=== PATIENT | female | born 1950 | race Caucasian/White ===

== ENCOUNTER 2020-04-06 09:21 | Emergency (ER) | payer MEDICARE, OTHER ==
[~2020-04-06] VITALS: Ht 172.7 cm; Wt 70.0 kg
[2020-04-06 09:55] LABS: BASO % 1 % (0-3); EOS % 1 % (0-3); HEMATOCRIT 40.3 % (36.0-47.0); HEMOGLOBIN 13.3 g/dL (12.0-15.5); LYMPH # 1.1 x10^3/uL (1.0-4.8); LYMPH % 15 % (24-48); MEAN CORPUSCULAR HEMOGLOBIN 30 pg (25-35); MEAN CORPUSCULAR HGB CONC 33 g/dL (31-37); MEAN CORPUSCULAR VOLUME 91 fL (79-100); MONO # 0.7 x10^3/uL (0.0-1.1); MONO % 10 % (0-9); NEUT # 5.4 x10^3uL (1.8-7.7); NEUT % 74 % (31-73); PLATELET COUNT 235 x10^3/uL (140-400); RED BLOOD COUNT 4.42 x10^6/uL (3.50-5.40); RED CELL DISTRIBUTION WIDTH 13.4 % (11.5-14.5); WHITE BLOOD COUNT 7.3 x10^3/uL (4.0-11.0)
[2020-04-06 10:00] LABS: CALCIUM 9.5 mg/dL (8.5-10.1); GFR 55.3; POTASSIUM 3.7 mmol/L (3.5-5.1)
[2020-04-06] MEDS ORDERED: ONDANSETRON PF 4 MG/2 ML VIAL. IVP ONE ×2 (10:00→13:15)
[2020-04-06] MEDS ORDERED: MORPHINE SULFATE 4 MG/ML DISP.SYRIN. IV ONE ×2 (10:00→14:15)
--- NOTE | 2020-04-06 10:00 | PHYS DOC ---
Past History Past Medical History: Cancer, Depression, Hypertension, Hypothyroid Past Surgical History: Tubal ligation Alcohol Use: None General Adult EDM: Chief Complaint: ABDOMINAL PAIN HPI: HPI: Patient is a 69-year-old female who presented to ER today for evaluation of abdominal pain started this morning, associate with some nausea. Patient said t he pain radiates across her belly and into her back area. Patient denies any chest pain, no cough, no fever, no trouble breathing. Patient denies any diarrhea Review of Systems: Review of Systems: Constitutional: Denies fever or chills Eyes: Denies change in visual acuity HENT: Denies nasal congestion or sore throat Respiratory: Denies cough or shortness of breath Cardiovascular: Denies chest pain or edema GI: Positive for abdominal pain and nausea, no diarrhea. : Denies dysuria Musculoskeletal: Denies back pain or joint pain Integument: Denies rash Neurologic: Denies headache, focal weakness or sensory changes Endocrine: Denies polyuria or polydipsia Lymphatic: Denies swollen glands Psychiatric: Denies depression or anxiety Heart Score: Risk Factors: Risk Factors: DM, Current or recent (<one month) smoker, HTN, HLP, family history of CAD, obesity. Risk Scores: Score 0 - 3: 2.5% MACE over next 6 weeks - Discharge Home Score 4 - 6: 20.3% MACE over next 6 weeks - Admit for Clinical Observation Score 7 - 10: 72.7% MACE over next 6 weeks - Early Invasive Strategies Current Medications: Current Meds: Current Medications Medications (Trade) Dose Ordered Sig/Abdirahman Start Time Stop Time Status Last Admin Dose Admin Morphine Sulfate (Morphine 4mg Syringe) 4 mg 1X ONCE 04/06/20 10:00 04/06/20 10:01 UNV Ondansetron HCl (Zofran) 4 mg 1X ONCE 04/06/20 10:00 04/06/20 10:01 UNV Allergies: Allergies: Allergies Coded Allergies Type Severity Reaction Last Updated Verified amoxicillin Allergy Unknown 04/06/20 Yes clavulanic acid Allergy Unknown 04/06/20 Yes meperidine Allergy Unknown 04/06/20 Yes Physical Exam: PE: Constitutional: Well developed, well nourished, no acute distress, non-toxic appearance. [] HENT: Normocephalic, atraumatic, bilateral external ears normal, oropharynx moist, no oral exudates, nose normal. [] Eyes: PERRLA, EOMI, conjunctiva normal, no discharge. [] Neck: Normal range of motion, no tenderness, supple, no stridor. [] Cardiovascular:Heart rate regular rhythm, no murmur [] Lungs & Thorax: Bilateral breath sounds clear to auscultation [] Abdomen: Bowel sounds normal, soft, THERE IS tenderness IN PERIUMBILICAL AREA, no masses, no pulsatile masses. [] Skin: Warm, dry, no erythema, no rash. [] Back: No tenderness, no CVA tenderness. [] Extremities: No tenderness, no cyanosis, no clubbing, ROM intact, no edema. [] Neurologic: Alert and oriented X 3, normal motor function, normal sensory function, no focal deficits noted. [] Psychologic: Affect normal, judgement normal, mood normal. [] Current Patient Data: Labs: Current Medications Medications (Trade) Dose Ordered Sig/Abdirahman Route PRN Reason Start Time Stop Time Status Last Admin Dose Admin Ondansetron HCl (Zofran) 4 mg 1X ONCE IVP 04/06/20 10:00 04/06/20 10:01 UNV Morphine Sulfate (Morphine 4mg Syringe) 4 mg 1X ONCE IV 04/06/20 10:00 04/06/20 10:01 UNV Vital Signs: Vital Signs Date Time Temp Pulse Resp B/P (MAP) Pulse Ox O2 Delivery O2 Flow Rate FiO2 04/06/20 09:36 98.4 88 18 159/80 (106) 97 Room Air EKG: EKG: [] Radiology/Procedures: Radiology/Procedures: [][address] [address] IMAGING REPORT Signed PATIENT: VERÓNICA JAUREGUI ACCOUNT: [id number] : 1950 LOCATION: ER AGE: 69 SEX: F EXAM STATUS: REG ER ORD. PHYSICIAN: JAIRON DYKES DO REASON: ABDOMINAL PAIN PROCEDURE: CT ABD PELV W/ IV CONTRST ONLY Examination: CT ABD PELV W/ IV CONTRST ONLY History: ABDOMINAL PAIN Comparison/Correlation: 11/22/2011 CT abdomen and pelvis with contrast Findings: Axial images of the abdomen and pelvis were obtained following IV contrast. Sagittal and coronal reformatted images were provided. Right posterior basilar subpleural nodule is stable measuring less than 0.5 cm diameter a much smaller nodule is new compared to the previous exam. Liver, spleen, pancreas, adrenal glands, and right kidney are normal. Gallbladder fossa is unremarkable. Left renal lower pole cyst is present with septations at the superior aspect. These relatively thin septations are dense and probably calcified. No hydronephrosis. Moderately distended small bowel loops within the right abdomen and pelvis are fluid-filled. Transition point is noted involving small bowel on axial image 50 of series 2 within the right upper pelvic region. There is no mass or inflammatory process identified at this transition point. Distal decompressed small bowel loops are evident. The amount of pelvic free fluid is present and presumed reactive. Moderate amount of stool in the colon is present. No inflammatory findings about the cecum. Pelvic free fluid is probably reactive. The bladder is unremarkable. Uterus is unremarkable. Bony structures are unremarkable. Impression: Small bowel obstruction with transition in the right mid pelvic region. Reactive pelvic free fluid. PQRS Compliance Statement: One or more of the following individualized dose reduction techniques were utilized for this examination: 1. Automated exposure control 2. Adjustment of the mA and/or kV according to patient size 3. Use of iterative reconstruction technique Electronically signed by: Terrence Roper MD (04/06/2020 11:47 AM) [id number] DICTATED AND SIGNED BY: TERRENCE ROPER MD DATE: 04/06/20 1147 CC: JAIRON DYKES DO; KIRK REEVES ~ Course & Med Decision Making: Course & Med Decision Making Pertinent Labs and Imaging studies reviewed. (See chart for details) Patient is a 69-year-old female who was found to have small bowel obstruction. Patient will need to be transferred to another hospital with surgical and GI specialist available. Patient request to be transferred to [facility]. Discussed with Dr. Ny who agreed to accept the patient for transfer over there. Ashwini Disclaimer: Ashwini Disclaimer: This electronic medical record was generated, in whole or in part, using a voice recognition dictation system. Departure Departure: Impression: Primary Impression: Small bowel obstruction Disposition: 02 XFER SHT-TRM HOSP (transferred to [facility], accepted by Dr. Ny) Condition: STABLE Referrals: KIRK REEVES (PCP) JAIRON DYKES DO Apr 06, 2020 10:00
[2020-04-06 10:06] LABS: ALBUMIN/GLOBULIN RATIO 1.1 (1.0-1.7); TOTAL BILIRUBIN 0.5 mg/dL (0.2-1.0); TOTAL PROTEIN 7.5 g/dL (6.4-8.2)
[2020-04-06] MEDS ORDERED: IOHEXOL 300 MG/ML 75 ML VIAL. IV ONE (10:45)
[2020-04-06] MEDS ORDERED: CONTRAST GIVEN. MC PRN (11:00)
[2020-04-06 11:30] LABS: BACTERIA,URINE MOD /HPF (0-FEW); BILIRUBIN,URINE NEG (NEG); CLARITY,URINE CLEAR; COLOR,URINE YELLOW; GLUCOSE,URINE NEG (NEG); NITRITE,URINE NEG (NEG); SQUAMOUS EPITHELIAL CELL,UR FEW /LPF; UROBILINOGEN,URINE 0.2 mg/dL (0.2 mg/dL); WBC,URINE 20-40 /HPF (0-4)
--- NOTE | 2020-04-06 11:50 | RAD ---
Examination: CT ABD PELV W/ IV CONTRST ONLY History: ABDOMINAL PAIN Comparison/Correlation: 11/22/2011 CT abdomen and pelvis with contrast Findings: Axial images of the abdomen and pelvis were obtained following IV contrast. Sagittal and coronal reformatted images were provided. Right posterior basilar subpleural nodule is stable measuring less than 0.5 cm diameter a much smaller nodule is new compared to the previous exam. Liver, spleen, pancreas, adrenal glands, and right kidney are normal. Gallbladder fossa is unremarkable. Left renal lower pole cyst is present with septations at the superior aspect. These relatively thin septations are dense and probably calcified. No hydronephrosis. Moderately distended small bowel loops within the right abdomen and pelvis are fluid-filled. Transition point is noted involving small bowel on axial image 50 of series 2 within the right upper pelvic region. There is no mass or inflammatory process identified at this transition point. Distal decompressed small bowel loops are evident. The amount of pelvic free fluid is present and presumed reactive. Moderate amount of stool in the colon is present. No inflammatory findings about the cecum. Pelvic free fluid is probably reactive. The bladder is unremarkable. Uterus is unremarkable. Bony structures are unremarkable. Impression: Small bowel obstruction with transition in the right mid pelvic region. Reactive pelvic free fluid. PQRS Compliance Statement: One or more of the following individualized dose reduction techniques were utilized for this examination: 1. Automated exposure control 2. Adjustment of the mA and/or kV according to patient size 3. Use of iterative reconstruction technique Electronically signed by: Terrence Rodriguez MD (04/06/2020 11:47 AM) [id number]
--- NOTE | 2020-04-06 13:24 | RAD ---
INDICATION: Reason: NGT PLACEMENT / Spl. Instructions: / History: COMPARISON: CT from earlier same day IMPRESSION: Abdomen: Single view obtained. Enteric tube is seen with the tip just distal to the gastroesophageal junction and the sidehole within the distal esophagus. Air-filled dilated loops of bowel are again seen within the abdomen. Again could be from obstruction. Electronically signed by: Brannon Howell MD (04/06/2020 1:21 PM) [id number]
--- NOTE | 2020-04-06 14:03 | EKG ---
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
[2020-04-06 14:17] VITALS: BP 162/76
== END 2020-04-06 14:43 | disposition short-term general hospital (02) ==
LOC: ER 09:21
DX: K56.609 Unspecified intestinal obstruction, unspecified as to partial versus complete obstruction (principal)
CPT/HCPCS: 36415; 74018; 74177; 80053; 81001; 83690; 83735; 84484; 85025; 85610; 85730; 87086; 93005; 96374; 96375; 96376; 99285; J2270; J2405; Q9967; 87077; 87186

== ENCOUNTER 2020-04-22 11:03 | Emergency (ER) | payer MEDICARE ==
[~2020-04-22] VITALS: Ht 172.7 cm; Wt 66.5 kg
--- NOTE | 2020-04-22 11:13 | PHYS DOC ---
Past History Past Medical History: Cancer, Depression, Hypertension, Hypothyroid Past Surgical History: Tubal ligation Alcohol Use: None General Adult EDM: Chief Complaint: NEAR SYCOPE HPI: HPI: Patient is a 69-year-old female who presents via EMS for near syncopal episode just prior to arrival. Patient states she had been feeling well and just showered and then started feeling clammy and lightheaded, went to have a small bowel movement and the symptoms persisted afterwards. Symptoms lasted but has total of 10 minutes. Patient states she has not had similar symptoms in the past denies any loss of consciousness or falls. Denies any chest pain, palpitations, shortness of breath. Patient is postop bowel resection for a bowel obstruction April 06 done at [place] by Dr. Neumann. Patient states the wound has been healing well she has been tolerating p.o. has a history of high blood pressure and has been having recent changes in her blood pressure medication, last medication change 2 weeks ago. Review of Systems: Review of Systems: Constitutional: Denies fever or chills, lightheadedness and diaphoresis Eyes: Denies change in visual acuity HENT: Denies nasal congestion or sore throat Respiratory: Denies cough or shortness of breath Cardiovascular: Denies chest pain or edema GI: Denies abdominal pain, nausea, vomiting, bloody stools or diarrhea : Denies dysuria Musculoskeletal: Denies back pain or joint pain Integument: Denies rash Neurologic: Denies headache, focal weakness or sensory changes Endocrine: Denies polyuria or polydipsia Lymphatic: Denies swollen glands Psychiatric: Denies depression or anxiety Heart Score: Risk Factors: Risk Factors: DM, Current or recent (<one month) smoker, HTN, HLP, family history of CAD, obesity. Risk Scores: Score 0 - 3: 2.5% MACE over next 6 weeks - Discharge Home Score 4 - 6: 20.3% MACE over next 6 weeks - Admit for Clinical Observation Score 7 - 10: 72.7% MACE over next 6 weeks - Early Invasive Strategies Allergies: Allergies: Allergies Coded Allergies Type Severity Reaction Last Updated Verified amoxicillin Allergy Unknown 04/06/20 Yes clavulanic acid Allergy Unknown 04/06/20 Yes meperidine Allergy Unknown 04/06/20 Yes Physical Exam: PE: Constitutional: Well developed, well nourished, no acute distress, non-toxic appearance. [] HENT: Normocephalic, atraumatic, bilateral external ears normal, oropharynx moist, no oral exudates, nose normal. [] Eyes: PERRLA, EOMI, conjunctiva normal, no discharge. [] Neck: Normal range of motion, no tenderness, supple, no stridor. [] Cardiovascular:Heart rate regular rhythm, no murmur [] Lungs & Thorax: Bilateral breath sounds clear to auscultation [] Abdomen: Bowel sounds normal, soft, no tenderness, no masses, no pulsatile masses. [] Skin: Warm, dry, no erythema, no rash. [] Back: No tenderness, no CVA tenderness. [] Extremities: No tenderness, no cyanosis, no clubbing, ROM intact, no edema. [] Neurologic: Alert and oriented X 3, normal motor function, normal sensory function, no focal deficits noted. [] Psychologic: Affect normal, judgement normal, mood normal. [] EKG: EKG: Normal sinus rhythm, heart rate 65, occasional PAC, no ST elevation or depression. T waves unremarkable, normal axis [] Radiology/Procedures: Radiology/Procedures: CTA of the chest, abdomen and pelvis with contrast 04/22/2020 CLINICAL HISTORY: Syncope. TECHNIQUE: After the intravenous administration 100 cc of Omnipaque 350 only, contiguous, 0.625 mm axial sections were obtained through the chest, abdomen and pelvis. 2 mm reconstructed axial images of the chest and 3 mm axial sections were obtained through abdomen and pelvis. Additionally 3-D MIP sagittal and coronal reconstructed images were obtained. One or more of the following individualized dose reduction techniques were utilized for this study: 1. Automated exposure control. 2. Adjustment of the mA and/or kV according to patient size. 3. Use of iterative reconstruction technique. FINDINGS: Comparison is made to the patient's CT scan of the abdomen and pelvis dated 04/06/2020. Atherosclerotic calcification of the thoracic aorta and its branches is noted. The thoracic aorta is mildly tortuous but tapers normally. No dissection or aneurysm of the thoracic aorta is seen. The origins of the brachiocephalic, left common carotid and left subclavian arteries from the thoracic aortic arch are obscured due to beam Serrano artifact related to contrast opacifying the left brachiocephalic vein from the left arm contrast injection.They are grossly patent. The heart is mildly enlarged. No filling defect is seen within the major branches of either pulmonary artery. There is no CT evidence of pulmonary embolism. A 6 mm noncalcified nodule is seen involving the right lower lobe. No additional pulmonary nodule is seen. Dependent subsegmental atelectasis is seen involving both lungs. No area of consolidation is noted. No pneumothorax or pleural effusion is seen. The liver parenchyma has a decreased attenuation consistent with fatty infiltration. The spleen, pancreas, adrenal glands and right kidney are within normal limits. A 5.6 cm rounded low-attenuation lesion is seen involving the mid/lower pole of the left kidney. This likely represents a cyst. No further imaging evaluation is recommended. The gallbladder is well-distended. No free fluid or free air is seen within the abdomen. The small bowel obstruction seen on the previous examination has resolved. The patient is post resection and anastomosis involving distal small bowel loops within the right lower quadrant abdomen. Diffuse wall thickening of the distal transverse colon, descending colon and sigmoid colon is seen. This portion of the colon is decompressed and difficult to evaluate. This finding could be seen with a colitis. Clinical correlation is recommended. No abnormal fluid collection is seen to suggest evidence of an abscess. There is no evidence of bowel obstruction. Images through the pelvis demonstrate a small amount of free fluid in the pelvis which has decreased since the previous study. No adnexal mass is seen. The osseous structures are unchanged. CTA images demonstrate mild to moderate scattered atheromatous/atherosclerotic plaque formation involving the abdominal aorta and its branches. The abdominal aorta tapers normally. The origins of the celiac trunk and superior mesenteric artery are patent. Solitary renal arteries are seen bilaterally. There are patent. Atherosclerotic calcification of the common iliac arteries and their branches is noted. No area stenosis or occlusion is seen. IMPRESSION: 1. No acute abnormality is seen involving the chest. 2. . 6 mm noncalcified nodule is seen involving the right lower lobe. Follow-up per Fleischner Society recommendations (see below) is recommended. 3. Postsurgical changes are seen involving the small bowel within the right lower of the quadrant abdomen. The small bowel obstruction seen on the previous examination has resolved. The small amount of free fluid within the pelvis has decreased. 4. Diffuse wall thickening of the distal transverse colon, the descending colon and sigmoid colon is seen. This finding could be seen with a colitis. Clinical correlation is recommended. [] Course & Med Decision Making: Course & Med Decision Making Pertinent Labs and Imaging studies reviewed. (See chart for details) Patient feeling well, repeat troponin negative. Work-up unremarkable [] Dragon Disclaimer: Dragon Disclaimer: This electronic medical record was generated, in whole or in part, using a voice recognition dictation system. Departure Departure: Disposition: 01 DC HOME SELF CARE/HOMELESS Condition: STABLE Referrals: KIRK REEVES (PCP) STALIN ESQUIVEL MD Apr 22, 2020 11:13
[2020-04-22 11:31] LABS: BASO # 0.1 x10^3/uL (0.0-0.2); BASO % 1 % (0-3); EOS # 0.1 x10^3/uL (0.0-0.7); EOS % 2 % (0-3); HEMATOCRIT 33.4 % (36.0-47.0); HEMOGLOBIN 10.9 g/dL (12.0-15.5); LYMPH # 1.9 x10^3/uL (1.0-4.8); LYMPH % 24 % (24-48); MEAN CORPUSCULAR HEMOGLOBIN 30 pg (25-35); MEAN CORPUSCULAR HGB CONC 33 g/dL (31-37); MEAN CORPUSCULAR VOLUME 92 fL (79-100); MONO # 0.7 x10^3/uL (0.0-1.1); MONO % 9 % (0-9); NEUT # 5.2 x10^3uL (1.8-7.7); NEUT % 65 % (31-73); PLATELET COUNT 389 x10^3/uL (140-400); RED BLOOD COUNT 3.63 x10^6/uL (3.50-5.40); RED CELL DISTRIBUTION WIDTH 13.6 % (11.5-14.5)
[2020-04-22 11:40] LABS: CALCIUM 9.7 mg/dL (8.5-10.1); GFR 55.3; POTASSIUM 4.1 mmol/L (3.5-5.1)
[2020-04-22 11:53] LABS: ALBUMIN 3.3 g/dL (3.4-5.0); MAGNESIUM 2.4 mg/dL (1.8-2.4); TOTAL BILIRUBIN 0.3 mg/dL (0.2-1.0); TOTAL PROTEIN 6.7 g/dL (6.4-8.2)
[2020-04-22] MEDS ORDERED: CONTRAST GIVEN. MC PRN (12:45)
[2020-04-22] MEDS: IOHEXOL 350 MG/ML 100 ML VIAL. IV ONE (13:10)
--- NOTE | 2020-04-22 14:14 | RAD ---
CTA of the chest, abdomen and pelvis with contrast 04/22/2020 CLINICAL HISTORY: Syncope. TECHNIQUE: After the intravenous administration 100 cc of Omnipaque 350 only, contiguous, 0.625 mm axial sections were obtained through the chest, abdomen and pelvis. 2 mm reconstructed axial images of the chest and 3 mm axial sections were obtained through abdomen and pelvis. Additionally 3-D MIP sagittal and coronal reconstructed images were obtained. One or more of the following individualized dose reduction techniques were utilized for this study: 1. Automated exposure control. 2. Adjustment of the mA and/or kV according to patient size. 3. Use of iterative reconstruction technique. FINDINGS: Comparison is made to the patient's CT scan of the abdomen and pelvis dated 04/06/2020. Atherosclerotic calcification of the thoracic aorta and its branches is noted. The thoracic aorta is mildly tortuous but tapers normally. No dissection or aneurysm of the thoracic aorta is seen. The origins of the brachiocephalic, left common carotid and left subclavian arteries from the thoracic aortic arch are obscured due to beam Serrano artifact related to contrast opacifying the left brachiocephalic vein from the left arm contrast injection.They are grossly patent. The heart is mildly enlarged. No filling defect is seen within the major branches of either pulmonary artery. There is no CT evidence of pulmonary embolism. A 6 mm noncalcified nodule is seen involving the right lower lobe. No additional pulmonary nodule is seen. Dependent subsegmental atelectasis is seen involving both lungs. No area of consolidation is noted. No pneumothorax or pleural effusion is seen. The liver parenchyma has a decreased attenuation consistent with fatty infiltration. The spleen, pancreas, adrenal glands and right kidney are within normal limits. A 5.6 cm rounded low-attenuation lesion is seen involving the mid/lower pole of the left kidney. This likely represents a cyst. No further imaging evaluation is recommended. The gallbladder is well-distended. No free fluid or free air is seen within the abdomen. The small bowel obstruction seen on the previous examination has resolved. The patient is post resection and anastomosis involving distal small bowel loops within the right lower quadrant abdomen. Diffuse wall thickening of the distal transverse colon, descending colon and sigmoid colon is seen. This portion of the colon is decompressed and difficult to evaluate. This finding could be seen with a colitis. Clinical correlation is recommended. No abnormal fluid collection is seen to suggest evidence of an abscess. There is no evidence of bowel obstruction. Images through the pelvis demonstrate a small amount of free fluid in the pelvis which has decreased since the previous study. No adnexal mass is seen. The osseous structures are unchanged. CTA images demonstrate mild to moderate scattered atheromatous/atherosclerotic plaque formation involving the abdominal aorta and its branches. The abdominal aorta tapers normally. The origins of the celiac trunk and superior mesenteric artery are patent. Solitary renal arteries are seen bilaterally. There are patent. Atherosclerotic calcification of the common iliac arteries and their branches is noted. No area stenosis or occlusion is seen. IMPRESSION: 1. No acute abnormality is seen involving the chest. 2. . 6 mm noncalcified nodule is seen involving the right lower lobe. Follow-up per Fleischner Society recommendations (see below) is recommended. 3. Postsurgical changes are seen involving the small bowel within the right lower of the quadrant abdomen. The small bowel obstruction seen on the previous examination has resolved. The small amount of free fluid within the pelvis has decreased. 4. Diffuse wall thickening of the distal transverse colon, the descending colon and sigmoid colon is seen. This finding could be seen with a colitis. Clinical correlation is recommended. Radiology, August 2016, volume 284, number 1, pages 228-243): In low risk solitary nodule patient: <6mm - No follow up required. 6-8mm - CT at 6-12 months, then consider CT at 18-24 months >8mm - Consider CT at 3 months, PET/CT, or tissue sampling In high risk solitary nodule patient: <6mm - Optional 12 month follow up. 6-8mm - CT at 6-12 months, then CT at 18-24 months >8mm - Consider CT at 3 months, PET/CT, or tissue sampling Electronically signed by: Mitul Clark MD (04/22/2020 2:11 PM) [id number]
[2020-04-22 15:22] VITALS: BP 135/67
--- NOTE | 2020-04-22 17:49 | EKG ---
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
== END 2020-04-22 15:50 | disposition home or self-care (01) ==
LOC: ER 11:03
DX: R55 Syncope and collapse (principal); R42 Dizziness and giddiness; I10 Essential (primary) hypertension; E03.9 Hypothyroidism, unspecified; Z88.1 Allergy status to other antibiotic agents; Z88.8 Allergy status to other drugs, medicaments and biological substances
CPT/HCPCS: 36415; 71275; 74177; 80053; 83690; 83735; 83880; 84484; 85025; 85379; 93005; 99285; Q9967

== ENCOUNTER → 2020-08-03 | Outpatient (CLI) | payer MEDICARE, OTHER ==
--- NOTE | 2020-08-04 16:13 | RAD ---
EXAMINATION: MG 2D BILAT SCREENING CLINICAL HISTORY: Routine screening TECHNIQUE: Digital craniocaudal, mediolateral oblique, and exaggerated lateral craniocaudal views of the bilateral breasts obtained. COMPARISON: 12/21/2018, 07/21/2017, 04/29/2016 BREAST COMPOSITION: The breasts are extremely dense, which lowers the sensitivity of mammography. FINDINGS: No evidence of suspicious mass, calcifications, or areas of architectural distortion. IMPRESSION: No mammographic evidence of malignancy. BI-RADS ASSESSMENT: Category 1: Negative RECOMMENDATION: Return for routine bilateral screening mammogram in one year. PQRS compliance statement - Patient information was entered into a reminder system with a target due date for the next mammogram. "Our facility is accredited by the [employer] Mammography Program." Electronically signed by: Johnny Castro DO (08/04/2020 4:11 PM) [id number]
== END ==
LOC: MAMMO 08:36
PROVIDERS: ATTEND Physician Assistant Medical
DX: Z12.31 Encounter for screening mammogram for malignant neoplasm of breast (principal)
CPT/HCPCS: 77067

== ENCOUNTER 2020-10-01 17:53 | Emergency (ER) | payer MEDICARE, OTHER ==
[~2020-10-01] VITALS: Ht 172.7 cm; Wt 67.2 kg
[2020-10-01 18:05] VITALS: BP 158/63
--- NOTE | 2020-10-01 18:16 | PHYS DOC ---
Past History Past Medical History: Anxiety, Hypertension, Hypothyroid Past Surgical History: Tubal ligation Alcohol Use: None General Adult EDM: Chief Complaint: LACERATION/AVULSION HPI: HPI: Patient is a 70-year-old female who presents with laceration to tip of right thumb. Patient states that she was cutting squash when she cut the tip of her finger. Bleeding is controlled. Patient's not reporting any pain. Patient's tetanus is not up-to-date. Patient has a history of hypertension, anxiety, hypothyroid. Review of Systems: Review of Systems: Constitutional: Denies fever or chills Eyes: Denies change in visual acuity HENT: Denies nasal congestion or sore throat Respiratory: Denies cough or shortness of breath Cardiovascular: Denies chest pain or edema GI: Denies abdominal pain, nausea, vomiting, bloody stools or diarrhea : Denies dysuria Musculoskeletal: Denies back pain or joint pain Integument: Laceration to tip of right thumb Neurologic: Denies headache, focal weakness or sensory changes Endocrine: Denies polyuria or polydipsia Lymphatic: Denies swollen glands Psychiatric: Denies depression or anxiety Allergies: Allergies: Allergies Coded Allergies Type Severity Reaction Last Updated Verified amoxicillin Allergy Unknown 04/22/20 Yes clavulanic acid Allergy Unknown 04/06/20 Yes meperidine Allergy Unknown 04/06/20 Yes Physical Exam: PE: Constitutional: Well developed, well nourished, no acute distress, non-toxic appearance. [] HENT: Normocephalic, atraumatic, bilateral external ears normal, oropharynx moist, no oral exudates, nose normal. [] Eyes: PERRLA, EOMI, conjunctiva normal, no discharge. [] Neck: Normal range of motion, no tenderness, supple, no stridor. [] Cardiovascular:Heart rate regular rhythm, no murmur [] Lungs & Thorax: Bilateral breath sounds clear to auscultation [] Abdomen: Bowel sounds normal, soft, no tenderness, no masses, no pulsatile masses. [] Skin: Warm, dry, no erythema, no rash. [] Back: No tenderness, no CVA tenderness. [] Extremities: No tenderness, no cyanosis, no clubbing, ROM intact, no edema. [] Neurologic: Alert and oriented X 3, normal motor function, normal sensory function, no focal deficits noted. [] Psychologic: Affect normal, judgement normal, mood normal. [] EKG: EKG: [] Radiology/Procedures: Radiology/Procedures: [] Heart Score: C/O Chest Pain: No Risk Factors: Risk Factors: DM, Current or recent (<one month) smoker, HTN, HLP, family history of CAD, obesity. Risk Scores: Score 0 - 3: 2.5% MACE over next 6 weeks - Discharge Home Score 4 - 6: 20.3% MACE over next 6 weeks - Admit for Clinical Observation Score 7 - 10: 72.7% MACE over next 6 weeks - Early Invasive Strategies Course & Med Decision Making: Course & Med Decision Making Pertinent Labs and Imaging studies reviewed. (See chart for details) [] Patient has laceration to tip of right thumb. Bleeding is controlled. No sutures needed. Patient not up-to-date on tetanus. Tetanus administered in the emergency room. Dragon Disclaimer: Dragon Disclaimer: This electronic medical record was generated, in whole or in part, using a voice recognition dictation system. Departure Departure: Impression: Primary Impression: Laceration Disposition: 01 DC HOME SELF CARE/HOMELESS Condition: STABLE Referrals: KIRK REEVES (PCP) Patient Instructions: Fingertip Laceration Additional Instructions: EMERGENCY DEPARTMENT GENERAL DISCHARGE INSTRUCTIONS Thank you for coming to [facility] (ED) today and trusting us with you care. We trust that you had a positivie experience in our Emergency Department. If you wish to speak to the department management, you may call the director at [phone]. YOUR FOLLOW UP INSTRUCTIONS ARE FOLLOWS: 1. Do you have a private Doctor? If you do not have a private doctor, please ask for a resource list of physicians or clinics that may be able to assist you with f ollow up care. 2. The Emergency Physician has interpreted your x-rays. The X-Ray specialist will also review them. If there is a change in the findings, you will be notified in 48 hours when at all possible. 3. A lab test or culture has been done, your results will be reviewed and you will be notified if you need a change in treatment. ADDITIONAL INSTRUCTIONS AND INFORMATION: 1. Your care today has been supervised by a physician who is specially trained in emergency care. Many problems require more than one evaluation for a complete diagnosis and treatment. We recommend that you schedule your follow up appointment as recommended to ensure complete treatment of you illness or injury. If you are unable to obtain follow up care and continue to have a problem, or if your condition worsens, we recommend that you return to the ED. 2. We are not able to safely determine your condition over the phone nor are we able to give sound medical advice over the phone. For these safety reasons, if you call for medical advice we will ask you to come to the ED for further evaluation. 3. If you have any questions regarding these discharge instructions please call the ED at [phone]. SAFETY INFORMATION: In the interest of safety, wellness, and injury prevention; we encourage you to wear your sealbelt, if you smoke; quite smoking, and we encourage family to use a protect clem helmet for bicycling and other sporting events that present an increased risk for head injury. IF YOUR SYMPTOMS WORSEN OR NEW SYMPTOMS DEVELOP, OR YOU HAVE CONCERNS ABOUT YOUR CONDITION; OR IF YOUR CONDITION WORSENS WHILE YOU ARE WAITING FOR YOUR FOLLOW UP APPOINTMENT; EITHER CONTACT YOUR PRIMARY CARE DOCTOR, THE PHYSICIAN WHOSE NAME AND NUMBER YOU WERE GIVEN, OR RETURN TO THE ED IMMEDIATELY. JULIET DHALIWAL APRN Oct 01, 2020 18:16
[2020-10-01] MEDS ORDERED: DIPH,PERTUSS(ACELL),TET VAC/PF 0.5 ML SYRINGE. VAX IM ONE (18:30)
== END 2020-10-01 19:25 | disposition home or self-care (01) ==
LOC: ER 17:53
DX: S61.011A Laceration without foreign body of right thumb without damage to nail, initial encounter (principal); F41.9 Anxiety disorder, unspecified; I10 Essential (primary) hypertension; E03.9 Hypothyroidism, unspecified; Z88.1 Allergy status to other antibiotic agents; Z88.8 Allergy status to other drugs, medicaments and biological substances; W26.8XXA Contact with other sharp object(s), not elsewhere classified, initial encounter; Y93.89 Activity, other specified; Y92.89 Other specified places as the place of occurrence of the external cause; Y99.8 Other external cause status
CPT/HCPCS: 90471; 90715; 99283

== ENCOUNTER → 2020-10-25 | Outpatient (CLI) | payer MEDICARE, OTHER ==
[2020-10-01 18:05] VITALS: BP 158/63
--- NOTE | 2020-10-25 10:00 | RAD ---
EXAM: CHEST 2 VIEWS. HISTORY: Shortness of breath, congestion. COMPARISON: 10/25/2015. FINDINGS: Frontal and lateral views of the chest are obtained. A triangular opacity in the right cardiophrenic angle is stable chronically and likely represents an epicardial fat pad. The lungs are expanded to the 11th posterior ribs. There are no confluent infiltr ates. There is no pneumothorax or pleural effusion. The heart is not enlarged. IMPRESSION: 1. Mild hyperinflation without hemidiaphragmatic flattening. No confluent infiltrates. Electronically signed by: Carmen Mcginnis MD (10/25/2020 9:58 AM) [id number]
== END ==
LOC: RAD 09:16
PROVIDERS: ATTEND Physician Assistant Medical
DX: J98.11 Atelectasis (principal)
CPT/HCPCS: 71046

== ENCOUNTER → 2021-09-18 | Outpatient (CLI) | payer MEDICARE, OTHER ==
--- NOTE | 2021-09-18 09:29 | RAD ---
DATE: 09/18/2021 EXAM: MG 2D BILAT SCREENING HISTORY: Screening COMPARISON: 08/03/2020 and 04/29/2016 This study was interpreted with the benefit of Computerized Aided Detection (CAD). Breast Density: DENSE The breast parenchyma is extremely dense, which lowers the sensitivity of mammo graphy. Breast parenchyma level density D. FINDINGS: No suspicious mass, suspicious calcification, or architectural distortion. IMPRESSION: No evidence of malignancy. BI-RADS CATEGORY: 1 NEGATIVE RECOMMENDED FOLLOW-UP: 12M 12 MONTH FOLLOW-UP PQRS compliance statement: Patient information was entered into a reminder system with a target due d ate for the next mammogram. Mammography is a sensitive method for finding small breast cancers, but it does not detect them all a nd is not a substitute for careful clinical examination. A negative mammogram does not negate a clin ically suspicious finding and should not result in delay in biopsying a clinically suspicious abnorma lity. "Our facility is accredited by the [employer] Mammography Program." Electronically signed by: Dinah Jacobson MD (09/18/2021 9:27 AM) [id number]
== END ==
LOC: MAMMO 08:55
PROVIDERS: ATTEND Physician Assistant Medical
DX: Z12.31 Encounter for screening mammogram for malignant neoplasm of breast (principal)
CPT/HCPCS: 77067